=== PATIENT | male | born 1980 | race Asian ===

== ENCOUNTER 2018-01-28 17:47 | Emergency (ER) | payer SELFPAY ==
[~2018-01-28] VITALS: Ht 165.1 cm; Wt 69.0 kg
[2018-01-28 17:50] VITALS: BP 154/95
[2018-01-28] MEDS ORDERED: PLEASE ENTER HEIGHT AND WEIGHT MC SCH (17:53)
[2018-01-28] MEDS ORDERED: OXYcodone/APAP 5/325MG TABLET PO ONE (18:00)
[2018-01-28] MEDS ORDERED: OXYcodone/APAP 5/325MG TABLET ONE (18:07)
== END 2018-01-28 19:22 | disposition home or self-care (01) ==
LOC: ED 18:37
DX: S92.354A Nondisplaced fracture of fifth metatarsal bone, right foot, initial encounter for closed fracture (principal); S82.891A Other fracture of right lower leg, initial encounter for closed fracture; W22.8XXA Striking against or struck by other objects, initial encounter; Y93.44 Activity, trampolining; Y92.830 Public park as the place of occurrence of the external cause; Y99.8 Other external cause status
CPT/HCPCS: 29515; 99283